=== PATIENT | male | born 1980 | race Caucasian/White ===

== ENCOUNTER 2020-05-13 12:46 | Emergency (ER) | payer MEDICAID ==
[~2020-05-13] VITALS: Ht 162.6 cm; Wt 76.2 kg
[2020-05-13 12:51] VITALS: BP 131/76
--- NOTE | 2020-05-13 13:10 | NUR ---
40 y/o male from home c/o body aches, cough and SOB since this morning. Pt states he was sent home from work due to symptoms. RR even and unlabored, does not appear in distress. Afebrile at this time. Skin warm, dry, intact. VSS
--- NOTE | 2020-05-13 13:12 | NUR ---
Covid swab collected
[2020-05-13 13:15] VITALS: BP 128/72
--- NOTE | 2020-05-14 15:55 | NUR ---
Covid results received from lab. Results = POSITIVE. Hard copy requested from lab and placed in infection controls mailbox.
== END 2020-05-13 13:15 | disposition home or self-care (01) ==
LOC: MED 12:46
DX: R50.9 Fever, unspecified (principal); Z20.828 Contact with and (suspected) exposure to other viral communicable diseases
CPT/HCPCS: 99283; U0003

== ENCOUNTER 2020-05-20 14:44 | Emergency (ER) | payer MEDICAID ==
[~2020-05-20] VITALS: Ht 162.6 cm; Wt 76.2 kg
[2020-05-20 15:11] VITALS: BP 114/66
[2020-05-20 16:02] VITALS: BP 114/66
== END 2020-05-20 16:02 | disposition home or self-care (01) ==
LOC: MED 14:44
DX: U07.1 COVID-19 (principal)
CPT/HCPCS: 99283; U0003

== ENCOUNTER 2020-05-24 10:08 | Emergency (ER) | payer MEDICAID ==
--- NOTE | 2020-05-24 10:17 | NUR ---
PT LEFT WITHOUT BEEN SEEN, ERMD NOTIFIED, CHARGE NURSE NOTIFIED.
== END 2020-05-24 10:17 | disposition left against medical advice (07) ==
LOC: MED 10:08
DX: Z53.21 Procedure and treatment not carried out due to patient leaving prior to being seen by health care provider (principal)